=== PATIENT | female | born 1960 | race Caucasian/White ===

== ENCOUNTER 2020-05-22 21:59 | Inpatient (IN) | payer MEDICAID ==
[~2020-05-22] VITALS: Ht 165.1 cm; Wt 90.7 kg
[2020-05-22 22:30] VITALS: Ht 165.1 cm; Wt 90.7 kg
[2020-05-22 23:09] LABS: BASOPHIL % 0.7 % (0.2-1.3); PLATELET COUNT 225 x10^3mcL (179-408); RED CELL DISTRIBUTION WIDTH 13.9 % (12.3-17.7)
[2020-05-22 23:15] LABS: CALCIUM 9.1 mg/dL (8.5-10.1); CARBON DIOXIDE 24.3 mmol/L (21-32); CHLORIDE SERUM 104 mmol/L (98-107); CREATININE SERUM 0.8 mg/dL (0.6-1.0); GFR1 > 60 mL/min; GLUCOSE SERUM 109 mg/dL (74-106); POTASSIUM SERUM 3.8 mmol/L (3.5-5.1); SODIUM SERUM 139 mmol/L (136-145)
[2020-05-22 23:20] LABS: ALKALINE PHOSPHATASE 87 U/L (46-116); ALT/SGPT 61 U/L (14-59); AST/SGOT 34 U/L (15-37); BILIRUBIN TOTAL 0.2 mg/dL (0.20-1.00); TOTAL PROTEIN, SERUM 7.6 g/dL (6.4-8.2)
[2020-05-23] MEDS ORDERED: OX BILE PO (03:57)
[2020-05-23] MEDS ORDERED: [UNRECOGNIZED DRUG - OTHER] PO (03:58)
[2020-05-23] MEDS ORDERED: MAGNESIUM (04:00)
[2020-05-23] MEDS ORDERED: VIT D (04:00)
[2020-05-23] MEDS ORDERED: APPLE CIDER VI500 MG (04:00)
[2020-05-23] MEDS ORDERED: TAMSULOSIN HCL0.4 MG (04:01)
[2020-05-23 05:18] LABS: microscopic required? YES; urine erythrocyte 2+ (NEGATIVE)
[2020-05-23 05:22] LABS: BASOPHIL % 0.9 % (0.2-1.3); PLATELET COUNT 204 x10^3mcL (179-408); RED CELL DISTRIBUTION WIDTH 13.9 % (12.3-17.7)
[2020-05-23 05:44] LABS: CARBON DIOXIDE 25.8 mmol/L (21-32); CHLORIDE SERUM 105 mmol/L (98-107); CREATININE SERUM 0.8 mg/dL (0.6-1.0); GFR1 > 60 mL/min; GLUCOSE SERUM 106 mg/dL (74-106); MAGNESIUM 1.9 mg/dL (1.8-2.4); PHOSPHOROUS 3.9 mg/dL (2.5-4.9); POTASSIUM SERUM 4.3 mmol/L (3.5-5.1); SODIUM SERUM 140 mmol/L (136-145); T3 TOTAL 1.45 ng/mL
[2020-05-23 05:49] LABS: CHOLESTEROL/HDL RATIO 3.9
[2020-05-23 05:59] LABS: FREE T4 1.11 ng/dL (0.76-1.46); FREE THYROXINE INDEX 3.1 ug/dL (1.4-4.5); T4(THYROXINE) 9.3 ug/dL (4.7-13.3)
[2020-05-23 07:45] VITALS: BP 127/68
[2020-05-23 12:48] VITALS: BP 150/74
[2020-05-23 16:37] VITALS: BP 122/67
[2020-05-23 21:33] VITALS: BP 126/59
[2020-05-24 05:12] VITALS: BP 138/69
[2020-05-24 09:58] VITALS: BP 128/67
[2020-05-24 13:32] VITALS: BP 122/62
[2020-05-24] MEDS ORDERED: IBU600 M2 PO (17:27)
[2020-05-24 17:30] VITALS: BP 123/64
[2020-05-24 17:58] VITALS: BP 123/64
== END 2020-05-24 19:45 | disposition home or self-care (01) | DRG 446 ==
LOC: ED 21:59 → MU 05-23 03:02
PROVIDERS: Emergency Medicine; Urology; ADMIT Family Medicine; ATTEND Family Medicine
PROC: 0TC78ZZ Extirpation of Matter from Left Ureter, Via Natural or Artificial Opening Endoscopic (ICD-10-PCS; 2020-05-24)
PROC: 0T778DZ Dilation of Left Ureter with Intraluminal Device, Via Natural or Artificial Opening Endoscopic (ICD-10-PCS; principal; 2020-05-24 07:30)
DX: N13.2 Hydronephrosis with renal and ureteral calculous obstruction (principal); K76.0 Fatty (change of) liver, not elsewhere classified; Z20.822 Contact with and (suspected) exposure to COVID-19; R73.03 Prediabetes; Z63.5 Disruption of family by separation and divorce; Z90.49 Acquired absence of other specified parts of digestive tract; Z79.899 Other long term (current) drug therapy
CPT/HCPCS: 51610; 84439; C1758; C2625; G0378; J0696; J1170; J1885; J2060; J2405; J2704; J3010; J7030; Q9967; U0003

== ENCOUNTER 2020-06-04 20:32 | Inpatient (IN) | payer OTHER ==
[~2020-06-04] VITALS: Ht 165.1 cm; Wt 89.8 kg
[~2020-06-04 20:32] MED LIST: APPLE CIDER VI500 MG; IBU600 M2 PO; MAGNESIUM; OX BILE PO; TAMSULOSIN HCL0.4 MG; VIT D; [UNRECOGNIZED DRUG - OTHER] PO
[2020-06-04 20:57] VITALS: Ht 165.1 cm; Wt 89.8 kg
[2020-06-04 21:37] LABS: BASOPHIL % 1.9 % (0.2-1.3); PLATELET COUNT 176 x10^3mcL (179-408); RED CELL DISTRIBUTION WIDTH 13.7 % (12.3-17.7)
[2020-06-04 21:42] LABS: CALCIUM 8.3 mg/dL (8.5-10.1); CARBON DIOXIDE 27.7 mmol/L (21-32); CHLORIDE SERUM 104 mmol/L (98-107); CREATININE SERUM 0.7 mg/dL (0.6-1.0); GFR1 > 60 mL/min; GLUCOSE SERUM 113 mg/dL (74-106); POTASSIUM SERUM 3.6 mmol/L (3.5-5.1); SODIUM SERUM 141 mmol/L (136-145)
[2020-06-04 21:46] LABS: ALBUMIN 3.7 g/dL (3.4-5.0); ALKALINE PHOSPHATASE 81 U/L (46-116); ALT/SGPT 85 U/L (14-59); AST/SGOT 81 U/L (15-37); BILIRUBIN TOTAL 0.3 mg/dL (0.20-1.00); LIPASE 153 IU/L (73-393); TOTAL PROTEIN, SERUM 7.8 g/dL (6.4-8.2)
[2020-06-04 21:58] LABS: UA SPECIFIC GRAVITY >=1.030 (1.005-1.035); microscopic required? YES; urine erythrocyte TRACE (NEGATIVE)
--- NOTE | 2020-06-04 22:40 | NUR ---
PATIENT SEEN WITH COMPLAINT OF RIGHT FLANK PAIN. REPORTS SHE HAD STENT REMOVED AND IS HAVING FEVER. SEEN BY MD. SALINE LOCK INSERTED . PATIENT MEDICATED WITH TORADOL AND ZOFRAN. NASAL SWAB WAS SENT FOF FOR MAHOGANY. A PORTABLE CHEST XRAY WAS DONE,
--- NOTE | 2020-06-04 22:58 | NUR ---
PATIENT IS RESTING , FLUID INFUSING, NO APPARENT DISTRESS.
[2020-06-04] MEDS ORDERED: CIPRO250 MG PO (23:40)
--- NOTE | 2020-06-05 00:05 | NUR ---
PATIENT IS SLEEPING, WAITING FOR ADMISSION BED
--- NOTE | 2020-06-05 02:01 | NUR ---
REPORT WAS GIVEN TO OMAR. PATIENT TRANSPORTED TO ROOM 210 A.
[2020-06-05 04:54] VITALS: BP 140/77
--- NOTE | 2020-06-05 07:46 | NUR ---
RECEIVED PATIENT FROM AOC DIRECTOR COMBAT PLANS OFFICER RN. PATIENT A/OX4 RESTINGIN BED WITH EYES CLOSED, EASILY AROUSABLE. PATIENT ON ROOM AIR. BREATHING REG AND UNLABORED. NO C/O PAIN OR SOB NOTED. TELE #15, SR, HR 62. DENIES ANY CHEST PAIN. IV TO RAC C/D/I AND INFUSING NS AT 125 ML/HR. COMFORT AND SAFETY MEASURES IN PLACE. CALL LIGHT WITHIN REACH. WILL CONTINUE WITH PLAN OF CARE.
[2020-06-05 08:14] LABS: BASOPHIL % 0.4 % (0.2-1.3); PLATELET COUNT 143 x10^3mcL (179-408); RED CELL DISTRIBUTION WIDTH 13.7 % (12.3-17.7)
[2020-06-05 08:24] LABS: CALCIUM 8.4 mg/dL (8.5-10.1); CARBON DIOXIDE 26.9 mmol/L (21-32); CHLORIDE SERUM 109 mmol/L (98-107); CREATININE SERUM 0.7 mg/dL (0.6-1.0); GFR1 > 60 mL/min; GLUCOSE SERUM 98 mg/dL (74-106); MAGNESIUM 1.8 mg/dL (1.8-2.4); PHOSPHOROUS 3.4 mg/dL (2.5-4.9); POTASSIUM SERUM 3.9 mmol/L (3.5-5.1); SODIUM SERUM 142 mmol/L (136-145)
[2020-06-05 09:12] VITALS: BP 110/65
[2020-06-05 11:50] VITALS: BP 128/71
--- NOTE | 2020-06-05 12:23 | NUR ---
PER DR WILLARD, PATIENT IS CLEARED FROM UROLOGIST STANDPOINT. FOLLOW UP WITH CLINIC IN 1 WEEK. ABX FOR [address] CERON MADE AWARE. DR CERON IN TO SEE PATIENT. AWAITING URINE AND BLOOD CULTURE RESULTS. PCR SAMPLE WAS OBTAINED. AWAITING RESULTS. PER DR CERON CONT WITH PAIN MANAGEMENT. WILL CONTINUE TO MONITOR PATIENT INTERMITTENTLY.
[2020-06-05 17:04] VITALS: BP 133/71
--- NOTE | 2020-06-05 18:42 | NUR ---
PATIENT SITTING UP AT SIDE OF BED ON RA. AWAKE AND ALERT. A/OX4. NO C/O PAIN OR SOB NOTED AT THIS TIME. ON TELE #15, NSR, HR 92. DENIES ANY CHEST PAIN. IV TO RAC C/D/I AND PATENT, INFUSING NS AT 125 ML/HR. COMFORT AND SAFETY MEASURES IN PLACE. CALL LIGHT WITHIN REACH. WILL ENDORSE TO WAVE SOLDERING MACHINE OPERATOR RN.
--- NOTE | 2020-06-05 20:08 | NUR ---
ASSESSMENT COMPLETE PLAN OF CARE REVIEWED CALL LIGHT IN REACH WILL CONTINUE TO MONIOTR AND ASSESS CONDITION GUARDED
[2020-06-05 20:43] VITALS: BP 104/54
--- NOTE | 2020-06-06 | NUR ---
CONDITION GUARDED ASLEEP CALL LIGHT IN REACH WILL CONTINUE TO MONITOR AND ASSESS
--- NOTE | 2020-06-06 04:03 | NUR ---
ALL NEEDS ANTICIPATED AND MET NO ACUTE DISTRESS AT THIS TIME CONDITION GUARDED
[2020-06-06 05:53] VITALS: BP 116/65
[2020-06-06 07:09] LABS: BASOPHIL % 0.4 % (0.2-1.3); PLATELET COUNT 149 x10^3mcL (179-408); RED CELL DISTRIBUTION WIDTH 13.9 % (12.3-17.7)
[2020-06-06 07:31] LABS: CALCIUM 8.1 mg/dL (8.5-10.1); CARBON DIOXIDE 27.5 mmol/L (21-32); CHLORIDE SERUM 108 mmol/L (98-107); CREATININE SERUM 0.6 mg/dL (0.6-1.0); GFR1 > 60 mL/min; GLUCOSE SERUM 96 mg/dL (74-106); MAGNESIUM 1.7 mg/dL (1.8-2.4); PHOSPHOROUS 2.9 mg/dL (2.5-4.9); POTASSIUM SERUM 3.6 mmol/L (3.5-5.1); SODIUM SERUM 141 mmol/L (136-145)
--- NOTE | 2020-06-06 07:54 | NUR ---
RECEIVED PATIENT FROM ASSISTANT LOAN PROCESSOR RN. PATIENT A/OX4 ON RA. NO C/O PAIN OR SOB NOTED. PATIENT LYING IN BED ON LEFT SIDE, RESTING WITH EYES CLOSED, EASILY AROUSABLE. TELE #15, HR 72. DENIES ANY CHEST PAIN. IV TO RAC C/D/I AND INFUSING NS AT 125 ML/HR. COMFORT AND SAFETY MEASURES IN PLACE. CALL LIGHT WITHIN REACH. WILL CONTINUE WITH PLAN OF CARE - FU URINE AND BLOOD CULTURES, CONT ABX, ENCOURAGE OOB, AND PAIN MANAGEMENT NEEDED.
[2020-06-06 10:09] VITALS: BP 135/70
[2020-06-06 13:10] VITALS: BP 127/68
--- NOTE | 2020-06-06 15:21 | NUR ---
PATIENT RESTING IN BED. LYING ON RIGHT SIDE. NO C/O PAIN OR SOB NOTED. CALL LIGHT WITHIN REACH. WILL CONTINUE TO MONITOR PATIENT INTERMITTENTLY.
[2020-06-06 16:54] VITALS: BP 128/72
--- NOTE | 2020-06-06 18:16 | NUR ---
SPOKE TO DAUGHTER, ELLIOT ([phone]), VIA TELEPHONE. GAVE UPDATE ON PATIENTS STATUS. ALL QUESTIONS AND CONCERNS ADDRESSED. PATIENT LYING IN BED, AWAKE AND ALERT. ON ROOM AIR. NO C/O SOB NOTED. PT COMPLAINED OF HEADACHE. TYLENOL PRN GIVEN PER MAR. IV TO RAC 20G INFUSING NS AT 125 ML/HR. COMFORT AND SAFETY MEASURES IN PLACE. CALL LIGHT WITHIN REACH. WILL ENDORSE TO RADIO ELECTRONICS OFFICER RN.
[2020-06-06 20:56] VITALS: BP 119/69
--- NOTE | 2020-06-06 21:48 | NUR ---
RECEIVED PATIENT IN BED.AWAKE,ALERTT,AND ORIENTED .SKIN WARM AND DRY TO TOUCH. RESPIRATION EVEN AND UNLABORED,NO RESPIRATORY DISTRESS.ON ROOM AIR WITH O2 SAT. 98%. LUNGS SOUND DIMINISHED UPON AUSCULTATION.DENIES PAIN AND DISCOMFORT. CALL LIGHT WITHIN REACH.
[2020-06-07 05:34] VITALS: BP 143/73
[2020-06-07 07:03] LABS: BASOPHIL % 0.2 % (0.2-1.3); PLATELET COUNT 168 x10^3mcL (179-408); RED CELL DISTRIBUTION WIDTH 13.5 % (12.3-17.7)
--- NOTE | 2020-06-07 07:30 | NUR ---
RECEIVED PATIENT FROM NIGHT RN. PATIENT IN BED RESTING, NO DISTRESS NOTED. DENIES SOB, PATIENT ON ROOM AIR. SAFETY PRECAUTIONS IN PLACE, CALL LIGHT WITHIN REACH, BED LOCKED IN LOWEST POSITION.
[2020-06-07 08:12] LABS: CALCIUM 7.9 mg/dL (8.5-10.1); CARBON DIOXIDE 27.5 mmol/L (21-32); CHLORIDE SERUM 108 mmol/L (98-107); CREATININE SERUM 0.6 mg/dL (0.6-1.0); GFR1 > 60 mL/min; GLUCOSE SERUM 85 mg/dL (74-106); MAGNESIUM 1.7 mg/dL (1.8-2.4); PHOSPHOROUS 2.8 mg/dL (2.5-4.9); POTASSIUM SERUM 3.4 mmol/L (3.5-5.1); SODIUM SERUM 144 mmol/L (136-145)
[2020-06-07 08:30] VITALS: BP 140/78
--- NOTE | 2020-06-07 08:30 | NUR ---
PATIENT AWAKE AND RESTING IN BED. ASSESSMENT DONE. AO X4. DENIES SOB. DENIES CHEST PAIN. DENIES NAUSEA, VOMITING, DIARRHEA. DENIES ABD PAIN. PATIENT AMBULATORY WITH STEADY GAIT. SAFETY PRECAUTIONS IN PLACE, CALL LIGHT WITHIN REACH, BED LOCKED AND IN LOWEST POSITION.
--- NOTE | 2020-06-07 09:40 | NUR ---
PATIENT COMPLAINED OF HEADACHE 11/06. TYLENOL 650 MG PO GIVEN PRN ORDER. WILL REASSESS.
--- NOTE | 2020-06-07 10:40 | NUR ---
PATIENT DENIES HEADACHE AT THIS TIME. WILL CONTINUE TO MONITOR.
[2020-06-07] MEDS ORDERED: KEFLEX750 M1 PO (11:06)
[2020-06-07 12:30] VITALS: BP 120/77
--- NOTE | 2020-06-07 12:30 | NUR ---
PATIENT PROVIDED WITH LUNCH TRAY. VS REASSESS. PATIENT RESTING IN BED WITH NO SIGNS OF DISTRESS. CALL LIGHT WITHIN REACH AND BED LOCKED IN LOWEST POSITION.
[2020-06-07 13:20] VITALS: BP 140/78
[2020-06-07] MEDS ORDERED: CEPHALEXIN750 MG PO (14:34)
--- NOTE | 2020-06-07 14:50 | NUR ---
NURSING CO-SIGN THE DOCUMENTATION ENTERED BY THE IP HAS BEEN REVIEWED. REVIEWED/CO-SIGNED BY: Charlotte Donaldson DOCUMENTATION DONE BY:CHERYL CERVANTES
--- NOTE | 2020-06-07 15:45 | NUR ---
DR. FARMER, [facility] NOTIFIED OF K 3.4, MAGNES 1.7, AND COVID+. PATIENT DC HOME PER DR. FARMER ORDERS. IV REMOVED AND DRESSING APPLIED. PATIENT STABLE, DENIES SOB. DENIES CHEST PAIN, DENIES NAUSEA, VOMITING, DIARRHEA, ABD PAIN. DC INFORMATION/ MATERIAL GIVEN TO PATIENT AND DC FORMS SIGNED. ALL PERSONAL ITEMS ARE WITH PATIENT. PATIENT WAS WHELLED DOWN TO LOBBY, PATIENT ENDORSED TO SON.
== END 2020-06-07 15:47 | disposition home or self-care (01) | DRG 720 ==
LOC: ED 20:32 → DU 06-05 00:35 → EDBEDREQ 06-05 00:36 → DU 06-05 02:08
PROVIDERS: Emergency Medicine; ADMIT Hospitalist; ATTEND Hospitalist
DX: A41.9 Sepsis, unspecified organism (principal); K76.0 Fatty (change of) liver, not elsewhere classified; Z87.442 Personal history of urinary calculi; Z95.828 Presence of other vascular implants and grafts; N39.0 Urinary tract infection, site not specified; Z79.899 Other long term (current) drug therapy; N20.0 Calculus of kidney; Z20.822 Contact with and (suspected) exposure to COVID-19
CPT/HCPCS: 83880; G0378; J0696; J1885; J2405; J7030; J7060; U0003